=== PATIENT | female | born 1990 | race Caucasian/White ===

== ENCOUNTER → 2020-09-20 12:38 | Outpatient (CLI) | payer BC, MEDICAID, SELFPAY ==
--- NOTE | ~2020-09-20 | US_ITS ---
US OB transvaginal DATE: 09/20/2020 13:26 INDICATION: Gestational age determination TECHNIQUE: Real time imaging and doppler analysis COMPARISON: None FINDINGS: The uterus measures 9.5 cm height, 4.9 cm AP and 5.7 cm transverse dimension. Normally shaped intrauterine gestational sac with pole and yolk sac. Normal hyperechogenicity around the sac consistent with decidual reaction. [place] rump length: 1.02 cm. Estimated gestational age of 7 weeks 1 day plus or minus 5 days. YANNA: 05/08/2021 Right ovary measures 2.5 x 1.2 x 2.5 cm. Left ovary measures 4.2 x 2.8 x 2.6 cm. There is a complex lesion of the left ovary measuring 2.4 x 1.5 x 2.0 cm, likely corpus luteum. No free pelvic fluid. IMPRESSION: Estimated gestational age 7 weeks 1 day plus or minus 5 days; YANNA 05/08/2021 Reviewed, dictated and finalized at [facility]. Reviewed, dictated and finalized at [facility]. T CUSTODIAN IMPRESSION: Estimated gestational age 7 weeks 1 day plus or minus 5 days; YANNA 1
== END ==
PROVIDERS: Visit Provider Obstetrics & Gynecology
DX: Z36.87 Encounter for antenatal screening for uncertain dates (principal); Z3A.01 Less than 8 weeks gestation of pregnancy
CPT/HCPCS: 76817

== ENCOUNTER 2021-03-03 11:41 | Outpatient (CLI) | payer BC, MEDICAID, SELFPAY ==
[2021-03-03] VITALS (7 sets, daily range): BP systolic 128–135; BP diastolic 63–83; PULSE 87–100
[2021-03-03 12:21] LABS: Basophils Percent Auto 0.3 % (0.2-1.2); Eosinophils Absolute Auto 0.1 K/mm3 (0-0.3); Eosinophils Percent Auto 0.5 % (0-4.4); Hematocrit 39.5 % (37.0-47.0); Hemoglobin 12.8 g/dL (12.0-15.0); Immature Granulocyte Absolute 0.07 K/mm3 (0.00-0.031); Immature Granulocyte Percent A 0.6 % (0-0.5); Lymphocytes Absolute Auto 2.42 K/mm3 (0.9-3.2); Lymphocytes Percent Auto 21.2 % (18.3-44.2); Mean Corpuscular HGB Conc 32.4 g/dl (32-36); Mean Corpuscular Hemoglobin 28.6 pg (26-34); Mean Corpuscular Volume 88.4 fl (80-100); Mean Platelet Volume 10.1 fl (7.4-10.4); Monocytes Absolute Auto 0.6 K/mm3 (0.1-0.6); Monocytes Percent Auto 5.3 % (2.6-8.5); Neutrophils Absolute Auto 8.2 K/mm3 (1.3-6.7); Neutrophils Percent Auto 72.1 % (45.5-73.1); Platelet Count Result 298 k/mm3 (150-375); Red Blood Count 4.47 M/mm3 (4.2-5.4); Red Cell Distribution Width 14.2 % (11.5-14.5); White Blood Count 11.4 K/mm3 (4.5-10.0)
[2021-03-03 12:31] LABS: Alanine Aminotransferase 12 U/L (4-35); Albumin Level 3.9 g/dL (3.5-5.1); Alkaline Phosphatase 109 U/L (38-126); Anion Gap 9 mmol/L (8-16); Aspartate Amino Transferase 15 U/L (14-36); Bilirubin,Total 0.5 mg/dL (0.2-1.3); Blood Urea Nitrogen 6 mg/dL (7-17); Calcium 8.6 mg/dL (8.4-10.2); Carbon Dioxide 21 mmol/L (22-30); Chloride 106 mmol/L (98-107); Estimated Glomerular Filt Rate > 60; Glucose 73 mg/dL (65-110); Potassium 3.9 mmol/L (3.4-5.0); Sodium 136 mmol/L (137-145); Uric Acid 4.7 mg/dL (2.5-7.5)
[2021-03-03 13:06] LABS: Add Urine Microscopic? YES; Appearance Urine Cloudy (Clear); Bacteria Urine Trace /hpf; Bilirubin Urine Negative (Negative); Blood Urine Negative (Negative); Color Urine Yellow (Yellow); Glucose Urine UA Negative (Negative); Ketones Urine 1+ mg/dL (Negative); Leukocyte Esterase Ur Negative LEU/UL (NEGATIVE); Mucus Urine Rare /lpf; Nitrate Urine Negative (Negative); Protein Urine Negative (Negative); Specific Grav Ur 1.025 (1.001-1.035); Squamous Epithelial Cell Urine Many /hpf (Few); WBC Urine 0-3 /hpf (0-3)
--- NOTE | 2021-03-03 13:29 | PC.NURSE ---
[id number]--Report to Dr. Maier re: BP's and lab results. Orders to DC home.
[2021-03-03 21:07] LABS: Creatinine Urine 160.3 mg/dL; Total Protein Urine Random 7 mg/dL; Ur Ttl Prot Creatinine Ratio 0.04 mg/mg (0-0.20)
== END 2021-03-03 13:50 | disposition home or self-care (01) ==
LOC: ANHOBOP 11:45 → ANHOBPP 11:47
PROVIDERS: PCP Internal Medicine; Visit Provider Obstetrics & Gynecology
DX: O13.3 Gestational [pregnancy-induced] hypertension without significant proteinuria, third trimester (principal); Z3A.30 30 weeks gestation of pregnancy
CPT/HCPCS: 36415; 59025; 80053; 81001; 82570; 84156; 84550; 85025; 87086; 99199

== ENCOUNTER 2021-04-30 09:07 | Outpatient (CLI) | payer BC, MEDICAID, SELFPAY ==
[2021-04-30 09:29] LABS: Hematocrit 38.7 % (37.0-47.0); Mean Corpuscular HGB Conc 33.6 g/dl (32-36); Mean Corpuscular Hemoglobin 29.6 pg (26-34); Mean Corpuscular Volume 88.2 fl (80-100); Mean Platelet Volume 10.4 fl (7.4-10.4); Platelet Count Result 269 k/mm3 (150-375); Red Blood Count 4.39 M/mm3 (4.2-5.4); Red Cell Distribution Width 14.9 % (11.5-14.5); White Blood Count 9.7 K/mm3 (4.5-10.0)
[2021-05-01 13:13] LABS: Rapid Plasma Reagin Non-Reactive (NonReactive)
== END 2021-04-30 09:08 | disposition home or self-care (01) ==
PROVIDERS: PCP Internal Medicine; Visit Provider Obstetrics & Gynecology Gynecology
DX: Z34.93 Encounter for supervision of normal pregnancy, unspecified, third trimester (principal); Z3A.00 Weeks of gestation of pregnancy not specified
CPT/HCPCS: 36415; 85027; 86592; 86850; 86900; 86901

== ENCOUNTER 2021-05-02 10:04 | Inpatient (IN) | payer BC, MEDICAID, SELFPAY ==
[2021-05-02] VITALS (57 sets, daily range): BP systolic 105–150; BP diastolic 52–122; PULSE 56–93; RESP 14–18; TEMP 36.2–37.1; O2SAT 97–100
--- NOTE | 2021-05-02 07:58 | P.HP_ITS ---
H&P: HPI History of Present Illness Date/Time: 05/02/21 07:58 Chief Complaint: Scheduled Narrative: The patient is a 31-year-old 3 para 2 being admitted at 39 weeks for repeat section. The has been complicated by early diagnosis of gestational diabetes insulin requiring. She has been followed with twice weekly nonstress tests which have been reactive and serial ultrasounds w [facility] reveal at last check a 92nd percentile estimated weight. labs A positive, rubella immune, RPR negative, hepatitis-B surface antigen negative, HIV negative, and negative group B strep. Review of Systems Review of Systems: All systems reviewed & are unremarkable except as noted in HPI and below (History of present illness) PMFSH Past Medical History Medical History (Updated 05/02/21 @ 08:03 by Sole Lo MD) Anxiety Depression Surgical History Surgical History (Updated 05/02/21 @ 08:03 by Sole Lo MD) H/O excision of ganglion cyst History of X2 Status post appendectomy Status post bone graft Status post tonsillectomy and adenoidectomy Family History Family History Other No pertinent family history Social History Social History (System 04/23/20 @ 12:23 by Aydee Ledesma) Substance use: never Spiritual care concerns: No Meds Home Medications and Allergies Home Medications Medication Instructions Recorded Confirmed Type PNV cmb#95-ferrous fumarate-FA 1 tablet PO DAILY 04/21/21 04/21/21 History [] aspirin 81 mg PO DAILY 04/21/21 04/21/21 History ergocalciferol (vitamin D2) 1,250 mcg PO WEEKLY 04/21/21 04/21/21 History [Vitamin D2] insulin NPH isoph U-100 human 58 unit SUBCUT HS 04/21/21 04/21/21 History [Humulin N NPH U-100 Insulin] Allergies Allergy/AdvReac Type Severity Reaction Status Date / Time amoxicillin AdvReac Severe nausea/hear Verified 04/23/20 12:23 tburn WATER AdvReac Intermediate HIVES,ITCHING,BURNING Uncoded 04/23/20 12:23 SENSATION Exam Const: General: healthy appearing and comfortable GI: Inspection: other (Gravid) GI Palp: Yes Other GI palpation findings present (Fundal height 41cm with heart tones in the 130) Assessment and Plan Assessment and plan (1) 39 weeks gestation of : Code(s): Z3A.39 - 39 weeks gestation of Status: Acute Assessment and Plan: The plan is to proceed with repeat section. (2) GDM, class A2: Code(s): O24.419 - Gestational diabetes mellitus in , unspecified control Status: Acute (3) History of : Code(s): Z98.891 - History of uterine scar from previous surgery Status: Inactive
--- NOTE | 2021-05-02 07:58 | WPDHPUPDATE1 ---
History and Physical Update Update Date/Time: 05/02/21 07:58 History and Physical has been reviewed, including an updated exam of the patient. There are NO changes in the patient's condition. Risks, benefits, and alternatives have been discussed and questions answered. Patient agrees to proceed with procedure.
[2021-05-02] MEDS: LACTATED RINGERS 1,000 ML 125 ML IV CONT (10:54)
--- NOTE | 2021-05-02 11:39 | LDADM ---
This patient, Erin Montgomery, was admitted to Labor/Delivery/Recovery 119 on 05/02/21 at 10:04. Plans for repeat c section , pain management and were discussed with patient. Patient/family oriented to hospital policies and general routines including ID bracelet, bed and alarms, visiting hours, pain management, procedures, bathroom and other care routines, personal items, smoking policy, room service/diet and guest tray routines, infant security routines, and visiting hours. Patient/Family are encouraged to report perceived risks to care and to ask questions if they do not understand what they are told or what they should do. See OBIX for further documentation.
[2021-05-02] MEDS: ceFAZolin 3 GM/D5W 100 ML 100 ML IVPB (12:02)
[2021-05-02] MEDS: KETOROLAC 30 MG/ML VIAL (*BKC) IV PUSH ×2 (12:25→17:06)
--- NOTE | 2021-05-02 12:44 | W.PM.PROC2 ---
Procedure Note - Detailed Date of Procedure 05/02/21 Pre-op Diagnosis Previous c section x2 Intrauterine at 39 weeks Gestational diabetes insulin requiring Post-op Diagnosis same Procedure Performed Repeat low transverse section Surgeon Sole Lo MD Anesthesia spinal Findings Male infant 8lb with 8 and 9 Apgars; normal-appearing tubes ovaries and uterus Description of Procedure The patient was taken to the operating room and placed under anesthesia in the dorsal supine position with a leftward tilt. Once anesthesia was deemed adequate a Pfannenstiel skin incision was made through her prior incision with a scalpel. The incision was extended down to the fascia which was nicked in the midline. Fascial incision was extended laterally using Plaza scissors. The fascia was dissected off anteriorly and posteriorly while tenting with [facility] and using sharp dissection. The peritoneum was entered during this process and the incision was now extended with blunt traction. The Aydin O retractor was placed. The bladder flap was noted to be very deep below the transverse incision site and was left in place. The lower uterine segment was incised in a transverse fashion with the scalpel and extended laterally using blunt traction. Membranes are ruptured with clear fluid noted. The 's head was brought up into the incision and while the facilities maintenance assistant applied fundal pressure the infant was delivered. The cord was clamped and cut and the handed to the waiting nursery nurse. Cord blood for gases and lap were taken. The placenta was removed using manual traction. The uterine cavity is cleared with a dry sponge of all clots and debris. The uterine incision was then closed using 0 Monocryl in a running locked fashion with the same suture to imbricate. Good hemostasis was noted. The gutters were irrigated and tubes and ovaries inspected. The Aydin O retractor is removed and the incision is again inspected noted to be hemostatic. The fascia was closed using 0 Vicryl in a running fashion. Subcutaneous tissues were irrigated and made hemostatic using Bovie cautery. The skin incision is closed using 4-0 Vicryl in a subcuticular fashion. Dermaflex was placed over the incision. Sponge, needle, and instrument counts are correct per the OR staff. Patient was given 3g of Ancef prior to skin incision. The patient was taken to recovery in stable condition. Estimated Blood Loss 255 Drains Yes ([place]) Packing No Pathology yes (Placenta) Complications No immediate complications Condition stable Disposition PACU
--- NOTE | 2021-05-02 12:49 | PM.OBDSVD ---
DS: Admitting Diagnosis Discharge Date May 04, 2021 Admitting Diagnosis Intrauterine at 39 weeks with previous section x2 gestational diabetes insulin requiring Presents for repeat DS: Discharge Diagnosis Discharge Diagnosis (1) GDM, class A2: Code(s): O24.419 - Gestational diabetes mellitus in , unspecified control Status: Acute (2) delivery delivered: Code(s): O82 - Encounter for delivery without indication Status: Acute OB - DS: Summary OB Procedures : NST and Ultrasound OB Procedures Intrapartum: low cervical, transverse OB Procedures: : None Peripartum Data Infant Delivery Method: Section Procedures: Procedures Operation Date: 05/02/21 13:30 <No data on this case meets the specified criteria> Status at Discharge Functional status at discharge: independent ambulation Overall status at discharge: patient is progressing back to baseline Time Spent with Patient Time attestation: Total time spent providing and/or coordinating discharge services: Discharge Plan Discharge Attending physician on discharge: Sole Lo Discharging Clinician: Sole Lo Anticipated Discharge Date/Time: 05/04/21 12:51 Patient Disposition: Home, Self-Care Activity: may shower, may drive after 2 weeks and pelvic rest Diet: gestational diabetic Wound Care Instructions: incision open to air Patient Instructions: Antibiotic Form Stand Alone Forms: General Discharge Information Follow-up/Referrals: Zoran Maier MD [Physician] - 1 Week Discharge Medications: New hydrocodone-acetaminophen 5-325 mg tablet 1 tablet PO Q4H PRN (Reason: pain) Qty: 20 RF: 0 norethindrone (contraceptive) 0.35 mg tablet 0.35 mg PO DAILY Qty: 84 RF: 3 Continued ergocalciferol (vitamin D2) [Vitamin D2] 1,250 mcg (50,000 unit) Capsule 1,250 mcg PO WEEKLY RF: 0 PNV cmb#95-ferrous fumarate-FA [] 28 mg iron- 800 mcg Tablet 1 tablet PO DAILY RF: 0 Discontinued Humulin N NPH U-100 Insulin 100 unit/mL Suspension 58 unit SUBCUT HS RF: 0 aspirin 81 mg Tablet 81 mg PO DAILY RF: 0 Date of admission: 05/02/21 10:04 Primary Care Provider: Pierre Osman Admitting Provider: Zoran Maier Attending physician on admission: Zoran Maier Condition: Stable
[2021-05-02] MEDS: fentaNYL CITRATE INJ (*CRX) 100 MCG/2 ML VIAL (14:53)
--- NOTE | 2021-05-02 15:33 | PC.NURSE ---
Patient transferred to post room #283 per stretcher. Support person present. Oriented to unit, room, information board, rooming in, admission packet and security measures. Patient verbalizes understanding.
[2021-05-02] MEDS: OXYTOCIN 30 UNITS/NS 500 ML 30 UNITS/500 ML BAG 125 UNITS IV CONT (15:45)
[2021-05-02] MEDS: KCL 20 MEQ/D5/0.45% SOD CHL 1,000 ML 125 ML IV CONT (17:05)
[2021-05-02] MEDS: SIMETHICONE 80 MG TAB.CHEW PO (17:06)
[2021-05-02] MEDS: DOCUSATE SODIUM 100 MG CAPSULE PO (17:07)
[2021-05-02] MEDS: HYDROcodone/acetaminophen (*CRX) 10-325 MG TABLET 1 TAB PO ×2 (17:07→21:25)
[2021-05-03] MEDS: IBUPROFEN 600 MG TABLET PO ×4 (02:35→23:40)
[2021-05-03] MEDS: HYDROcodone/acetaminophen (*CRX) 10-325 MG TABLET 1 TAB PO ×5 (02:35→23:40)
[2021-05-03 04:50] VITALS: BP 124/82; PULSE 76; RESP 16; TEMP 37; O2SAT 97
[2021-05-03] MEDS: HYDROcodone/acetaminophen (*CRX) 5-325 MG TABLET 1 TAB PO (05:18)
[2021-05-03 05:46] LABS: Basophils Absolute Auto 0.1 K/mm3 (0.0-0.1); Basophils Percent Auto 0.5 % (0.2-1.2); Eosinophils Absolute Auto 0.1 K/mm3 (0-0.3); Eosinophils Percent Auto 0.5 % (0-4.4); Hematocrit 35.6 % (37.0-47.0); Hemoglobin 11.7 g/dL (12.0-15.0); Immature Granulocyte Absolute 0.06 K/mm3 (0.00-0.031); Immature Granulocyte Percent A 0.6 % (0-0.5); Lymphocytes Percent Auto 22.2 % (18.3-44.2); Mean Corpuscular HGB Conc 32.9 g/dl (32-36); Mean Corpuscular Hemoglobin 29.9 pg (26-34); Mean Platelet Volume 10.6 fl (7.4-10.4); Monocytes Absolute Auto 0.6 K/mm3 (0.1-0.6); Monocytes Percent Auto 6.6 % (2.6-8.5); Neutrophils Absolute Auto 6.6 K/mm3 (1.3-6.7); Neutrophils Percent Auto 69.6 % (45.5-73.1); Platelet Count Result 250 k/mm3 (150-375); Red Blood Count 3.91 M/mm3 (4.2-5.4); White Blood Count 9.4 K/mm3 (4.5-10.0)
--- NOTE | 2021-05-03 07:39 | PM.OBPNVD ---
OB - PN: Subj Subjective Date/time seen: 05/03/21 07:39 Patient comments: no complaints and pain well controlled baby status: doing well OB - PN: Obj Data Labs CBC & Chem 7: 05/03/21 04:58 Labs: Laboratory Results - last 24 hr 05/03/21 04:58 WBC 9.4 RBC 3.91 L Hgb 11.7 L Hct 35.6 L MCV 91.0 MCH 29.9 MCHC 32.9 RDW 15.0 H Plt Count 250 MPV 10.6 H Immature Gran % (Auto) 0.6 H Neut % (Auto) 69.6 Lymph % (Auto) 22.2 [place] % (Auto) 6.6 Eos % (Auto) 0.5 Baso % (Auto) 0.5 Lymph # (Auto) 2.10 [place] # (Auto) 0.6 Eos # (Auto) 0.1 Baso # (Auto) 0.1 Abs Immat Gran (auto) 0.06 H Absolute Neuts (auto) 6.6 Absolute Nucleated RBC 0.0 Nucleated RBC % 0.0 OB - PN A/P Plan day: 1 Plan: routine care Time Spent With Patient Time: Total time spent is greater than 50% in coordination of care (as documented) at patient's floor/unit and/or counseling patient: Exam Narrative: inc c/d/i : Bimanual exam- vagina & uterus: other (Uterus firm, nt @U)
[2021-05-03 08:00] VITALS: BP 135/78; PULSE 76; RESP 20; TEMP 35.9
--- NOTE | 2021-05-03 08:16 | WPDANESPN ---
Anes - Prog Note Post-Op Date/Time: 05/03/21 08:16 Vital Signs: Last Vital Signs Temp 98.6 F 05/03/21 04:50 Pulse 76 05/03/21 04:50 Resp 16 05/03/21 04:50 BP 124/82 05/03/21 04:50 Pulse Ox 97 05/03/21 04:50 Pain Score (VAS): 0 I/O: Intake & Output 05/02/21 05/03/21 05/03/21 23:59 07:59 15:59 Intake Total 1300 800 Output Total 600 575 Balance 700 225 Laboratory Tests 05/03/21 04:58 05/03/21 04:58 WBC 9.4 RBC 3.91 L Hgb 11.7 L Hct 35.6 L MCV 91.0 MCH 29.9 MCHC 32.9 RDW 15.0 H Plt Count 250 MPV 10.6 H Immature Gran % (Auto) 0.6 H Neut % (Auto) 69.6 Lymph % (Auto) 22.2 [place] % (Auto) 6.6 Eos % (Auto) 0.5 Baso % (Auto) 0.5 Lymph # (Auto) 2.10 [place] # (Auto) 0.6 Eos # (Auto) 0.1 Baso # (Auto) 0.1 Abs Immat Gran (auto) 0.06 H Absolute Neuts (auto) 6.6 Absolute Nucleated RBC 0.0 Nucleated RBC % 0.0 Post-procedural complaints: none Patient Feedback: Patient satisfied with anesthetic care.
--- NOTE | 2021-05-03 08:17 | WPDANLDPN2 ---
Anes-Prog Note L&D Date/Time: 05/03/21 08:17 Comfortable throughout: section Neuraxial method: spinal Epidural/Spinal procedure site: bruising Neuro status: Neuro function grossly intact. Vital Signs: Last Vital Signs Temp 98.6 F 05/03/21 04:50 Pulse 76 05/03/21 04:50 Resp 16 05/03/21 04:50 BP 124/82 05/03/21 04:50 Pulse Ox 97 05/03/21 04:50 Pain score (VAS): 0 I/O: Intake & Output 05/02/21 05/03/21 05/03/21 23:59 07:59 15:59 Intake Total 1300 800 Output Total 600 575 Balance 700 225 Post-procedural complaints: none Patient feedback: Patient satisfied with anesthetic care.
[2021-05-03] MEDS: DOCUSATE SODIUM 100 MG CAPSULE PO ×2 (08:27→19:12)
[2021-05-03] MEDS: MULTIVIT/MIN/PREN/FOL AC/IRON TABLET 1 TAB PO (08:27)
--- NOTE | 2021-05-03 08:40 | PC.NURSE ---
Consult with pt., mother reports is eagerly feeding with without issue. Mother is pleased infant is eagerly feeding, she had some latch issue with first two. This is mother?s 3rd child to breastfeed. Requested mother call out next feeding for observation per policy. Reviewed feeding cues, frequencies, duration of feedings, feeding elimination flow sheet, and signs of adequate intake. Demonstrated stimulation techniques to wake infant for feeding. Reviewed signs of a correct latch, effective nursing and suck swallow ratio. Nipple care reviewed of lanolin after feedings and warm compresses as needed. Requested mother to call out for RN/LC assistance next feeding to assess latch due reported nipple tenderness. Instructed feeding should be initiated three hours from start of last feeding or if feeding cues are noted before. Mother voiced understanding of information shared.
[2021-05-03] MEDS: SIMETHICONE 80 MG TAB.CHEW PO ×3 (15:32→23:40)
[2021-05-03 19:10] VITALS: BP 136/83; PULSE 83; RESP 16; TEMP 36.5
[2021-05-04] MEDS: SIMETHICONE 80 MG TAB.CHEW PO ×2 (02:40→05:45)
[2021-05-04] MEDS: HYDROcodone/acetaminophen (*CRX) 10-325 MG TABLET 1 TAB PO ×4 (02:40→12:53)
[2021-05-04] MEDS: IBUPROFEN 600 MG TABLET PO (05:45)
--- NOTE | 2021-05-04 07:32 | PM.OBPNVD ---
OB - PN: Subj Subjective Date/time seen: 05/04/21 07:32 Patient comments: no complaints and pain well controlled baby status: doing well OB - PN: Obj Data Labs CBC & Chem 7: 05/03/21 04:58 OB - PN A/P Plan day: 2 Plan: routine care, discharge home and other (Micronor for bc) Time Spent With Patient Time: Total time spent is greater than 50% in coordination of care (as documented) at patient's floor/unit and/or counseling patient: Exam Narrative: inc c/d/i : Bimanual exam- vagina & uterus: other (Uterus firm, nt @U)
[2021-05-04 09:40] VITALS: BP 148/97; PULSE 82; RESP 20; TEMP 36.9
--- NOTE | 2021-05-04 09:40 | PC.NURSE ---
Patient instructed on viewing the discharge video Mother & Baby Care, The First Two Weeks . Patient was given the opportunity and encouraged to ask questions. Patient verbalized understanding of information shared and has been given the mother/baby guide for home reference.
[2021-05-04] MEDS: DOCUSATE SODIUM 100 MG CAPSULE PO (09:46)
[2021-05-04] MEDS: MULTIVIT/MIN/PREN/FOL AC/IRON TABLET 1 TAB PO (09:46)
[2021-05-04 12:25] VITALS: BP 140/87
--- NOTE | 2021-05-04 15:18 | PC.NURSE ---
0900 Breast feeding note; visited with mother; she reports no breast feeding problems and feels baby is doing well. Mom and baby scheduled for discharge home today. Reviewed frequency and duration of feedings, nursing baby q2-3h and on demand. Reviewed use of feeding log for monitoring feedings and output per day of age for at least baby's first week until machine strap buckler seen in the office. Mother shown Mother Guide, and breast feeding pages flagged, including LC contact information. Reviewed care of breasts through engorgement. Mother had no questions for nurse or breast feeding concerns at this time.
[2021-05-05 09:24] VITALS: BP 148/85; PULSE 77; RESP 20; TEMP 37.2; O2SAT 100
== END 2021-05-04 13:28 | disposition home or self-care (01) | DRG 788 ==
LOC: ANHLDR 12:51 → ANHOB2 05-03 13:48 → ANHLDR 05-05 10:22 → ANHOB2 05-05 10:22
PROVIDERS: Admitting Provider Obstetrics & Gynecology Gynecology; PCP Internal Medicine; Visit Provider Obstetrics & Gynecology Gynecology
PROC: 10D00Z1 Extraction of Products of Conception, Low, Open Approach (ICD-10-PCS; CPT 59514; principal; 2021-05-02 13:30)
DX: O34.211 Maternal care for low transverse scar from previous cesarean delivery (principal); Z37.0 Single live birth; Z3A.39 39 weeks gestation of pregnancy; O24.424 Gestational diabetes mellitus in childbirth, insulin controlled
CPT/HCPCS: 36415; 85025; 88307; A9270; J0131; J0690; J1885; J2274; J2370; J2405; J2590; J3010; J3480; J7120

== ENCOUNTER 2021-07-30 04:12 | Emergency (ER) | payer OTHER, SELFPAY ==
--- NOTE | ~2021-07-30 | CT_ITS ---
EXAMINATION: CT abdomen pelvis wo con DATE: 07/30/2021 05:34 INDICATION: Right flank pain. Nausea and vomiting. TECHNIQUE: Computed tomography (CT) of the abdomen and pelvis was performed without intravenous contr ast. Automated exposure control and iterative reconstruction technique were employed. Exam dose: 149 2.69 mGy-cm total exam DLP. COMPARISON: None. FINDINGS: Lung bases are clear. Normal heart size. No pericardial or pleural effusion. Diffuse hepatic steatosis. No hepatic, splenic, pancreatic, and adrenal or renal space-occupying mass lesion is detected. Approximately 5 mm and 2 mm lower pole nonobstructing right renal calculi. There is a 5 mm proximal r ight ureteral calculus with moderate right hydronephrosis. There is mild perinephric stranding and ri ght nephromegaly. Normal caliber of the abdominal aorta. No intraperitoneal or retroperitoneal or pelvic mass lesion or adenopathy or ascites. Normal appendix. No bowel obstruction, bowel wall thickening, pneumatosis or intraperitoneal free air . Retroverted uterus. The adnexal areas and urinary bladder are unremarkable. No bowel obstruction, bowel wall thickening, pneumatosis or intraperitoneal free air. Small fat-containing umbilical hernia. Included skeletal structures are unremarkable IMPRESSION: 5 mm proximal right ureteral calculus with moderate right hydronephrosis, right nephrome gus and mild perinephric stranding 2 nonobstructing small lower pole right renal calculi Retroverted uterus Hepatic steatosis Reviewed, dictated and finalized at [facility]. Reviewed, dictated and finalized at location [facility]. 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
--- NOTE | ~2021-07-30 | XR_ITS ---
XR abdomen/kub 1V DATE: 07/30/2021 09:52 INDICATION: Kidney stone TECHNIQUE: AP projection, 2 views COMPARISON: 07/30/[address] abdomen pelvis FINDINGS: An approximately 4 mm calcified calculus is noted overlying the lower pole the right kidney. Questionable 4 mm calcification overlying the proximal right ureter at the L3 level on one of the 2 e xposures, not readily evident on the other exposure. No other calcified urinary tract calculi are noted. No visceromegaly is detected. No evidence of bowel obstruction. IMPRESSION: Lower pole right approximate 4 mm calcified calculus Possible 4 mm calcified proximal right ureteral calculus at L3 level, not confirmed on both views Reviewed, dictated and finalized at [facility]. Reviewed, dictated and finalized at [facility]. 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
[2021-07-30 04:17] VITALS: BP 152/92; PULSE 86; RESP 17; TEMP 36.9; O2SAT 98
[2021-07-30] MEDS: KETOROLAC 30 MG/ML VIAL (*BKC) IV PUSH (04:37)
[2021-07-30 05:03] LABS: Add Urine Microscopic? YES; Appearance Urine Cloudy (Clear); Bilirubin Urine Negative (Negative); Blood Urine 3+ (Negative); Color Urine Yellow (Yellow); Glucose Urine UA Negative (Negative); Ketones Urine Negative (Negative); Leukocyte Esterase Ur 3+ LEU/UL (Negative); Mucus Urine Moderate /lpf; Nitrate Urine Negative (Negative); Protein Urine 1+ mg/dL (Negative); RBC Urine >75 /hpf (0-2); Urobilinogen Urine Negative mg/dL (<2.0)
--- NOTE | 2021-07-30 05:21 | PC.NURSE ---
Patient taken to CT at this time. Taken via stretcher.
--- NOTE | 2021-07-30 05:51 | ED.BACK ---
HPI - Back Pain/Injury General Chief Complaint: Back Pain/Injury <Amol Paul MD - Last Filed: 07/30/21 06:55> Stated Complaint: Right flank pain <Amol Paul MD - Last Filed: 07/30/21 06:55> Time Seen by Provider: 07/30/21 04:18 <Amol Paul MD - Last Filed: 07/30/21 06:55> History of Present Illness HPI Narrative: Patient is a 31-year-old female who presents ER with sudden onset right flank pain. Associated with nausea and vomiting. No urinary frequency urgency or dysuria. No reproducible pain with movement but she does have some point tenderness with palpation. No numbness or tingling going down the legs. Reports she has had backaches before but not intense pain that is made her vomit and she is concerned she may have something more serious occurring. <Amol Paul MD - Last Filed: 07/30/21 06:55> Related Data Home Medications: Home Medications Medication Instructions Recorded Confirmed PNV cmb#95-ferrous fumarate-FA 1 tablet PO DAILY 04/21/21 05/02/21 [] ergocalciferol (vitamin D2) 1,250 mcg PO WEEKLY 04/21/21 05/02/21 [Vitamin D2] <Amol Paul MD - Last Filed: 07/30/21 06:55> Allergies/Adverse Reactions: Allergies Allergy/AdvReac Type Severity Reaction Status Date / Time amoxicillin AdvReac Severe nausea/hear Verified 07/30/21 04:20 tburn WATER AdvReac Intermediate HIVES,ITCHING,BURNING Uncoded 04/23/20 12:23 SENSATION <Amol Paul MD - Last Filed: 07/30/21 06:55> Review of Systems Review of Systems: All systems reviewed & are unremarkable except as noted in HPI and below <Amol Paul MD - Last Filed: 07/30/21 06:55> Constitutional: Constitutional: Denies chills, Denies fever(s) and Denies weakness <Amol Paul MD - Last Filed: 07/30/21 06:55> Cardiovascular: Cardiovascular: Denies chest pain, Denies rapid heart rate and Denies radiating jaw, neck or arm pain <Amol Paul MD - Last Filed: 07/30/21 06:55> Respiratory: Respiratory: Denies cough and Denies dyspnea <Amol Paul MD - Last Filed: 07/30/21 06:55> Gastrointestinal: Gastrointestinal: Denies abdominal pain, Reports nausea and Reports vomiting <Amol Paul MD - Last Filed: 07/30/21 06:55> Musculoskeletal: Musculoskeletal: Reports back pain and Reports muscle cramps <Amol Paul MD - Last Filed: 07/30/21 06:55> PMFSH Past Medical History Medical History: Medical History (Updated 07/30/21 @ 10:29 by Lauro Pryor MD) Anxiety Depression <Amol Paul MD - Last Filed: 07/30/21 06:55> Surgical History Surgical History: Surgical History (Updated 05/02/21 @ 08:03 by Sole Lo MD) H/O excision of ganglion cyst History of X2 Status post appendectomy Status post bone graft Status post tonsillectomy and adenoidectomy <Amol Paul MD - Last Filed: 07/30/21 06:55> Family History Family History: Family History Other No pertinent family history <Amol Paul MD - Last Filed: 07/30/21 06:55> Social History Social History: Social History (System 04/23/20 @ 12:23 by Aydee Ledesma) Smoking packs per day: 0.5 Smoking cigarettes per day: 10.0 Smoking status: Former smoker Tobacco type: cigarettes Second hand tobacco smoke exposure: Yes Substance use: never Spiritual care concerns: No <Amol Paul MD - Last Filed: 07/30/21 06:55> Exam Narrative: GENERAL: Well-appearing, well-nourished, and in no acute distress. HEAD: Normocephalic, atraumatic. ENT: Mucous membranes moist. CHEST: Clear to auscultation. No respiratory distress. HEART: Regular rate and rhythm. Normal peripheral pulses. ABDOMEN: Soft, nontender, nondistended. No CVA tenderness Back: No midline tenderness of the T/L-spine. There is paraspinal muscular discomfort in the L3 region
[2021-07-30 06:13] VITALS: BP 155/87; PULSE 73; RESP 17; O2SAT 97
[2021-07-30 06:34] LABS: Basophils Absolute Auto 0.1 K/mm3 (0.0-0.1); Basophils Percent Auto 0.5 % (0.2-1.2); Eosinophils Percent Auto 0.1 % (0-4.4); Hematocrit 40.6 % (37.0-47.0); Hemoglobin 13.2 g/dL (12.0-15.0); Immature Granulocyte Absolute 0.07 K/mm3 (0.00-0.031); Immature Granulocyte Percent A 0.5 % (0-0.5); Lymphocytes Absolute Auto 2.15 K/mm3 (0.9-3.2); Lymphocytes Percent Auto 15.9 % (18.3-44.2); Mean Corpuscular HGB Conc 32.5 g/dl (32-36); Mean Corpuscular Hemoglobin 29.2 pg (26-34); Mean Corpuscular Volume 89.8 fl (80-100); Mean Platelet Volume 10.4 fl (7.4-10.4); Monocytes Absolute Auto 0.5 K/mm3 (0.1-0.6); Monocytes Percent Auto 3.6 % (2.6-8.5); Neutrophils Absolute Auto 10.7 K/mm3 (1.3-6.7); Neutrophils Percent Auto 79.4 % (45.5-73.1); Platelet Count Result 354 k/mm3 (150-375); Red Blood Count 4.52 M/mm3 (4.2-5.4); Red Cell Distribution Width 14.6 % (11.5-14.5); White Blood Count 13.5 K/mm3 (4.5-10.0)
[2021-07-30 06:49] LABS: Anion Gap 9 mmol/L (8-16); Blood Urea Nitrogen 22 mg/dL (7-17); Calcium 9.5 mg/dL (8.4-10.2); Carbon Dioxide 26 mmol/L (22-30); Chloride 103 mmol/L (98-107); Estimated Glomerular Filt Rate > 60; Glucose 152 mg/dL (65-110); Potassium 3.8 mmol/L (3.4-5.0); Sodium 138 mmol/L (137-145)
--- NOTE | 2021-07-30 06:56 | PC.NURSE ---
Called main lab to have them run catheterized urine.
[2021-07-30 07:17] LABS: Calcium Oxalate Crystals Urine Present /hpf
[2021-07-30 07:34] LABS: Specific Grav Ur 1.032 (1.001-1.035)
[2021-07-30 07:35] LABS: Squamous Epithelial Cell Urine Few /hpf (Few)
--- NOTE | 2021-07-30 07:58 | PC.NURSE ---
Lab called regarding repeat UA being cancelled. They will check into it and call back.
--- NOTE | 2021-07-30 09:13 | PC.NURSE ---
Awaiting dispo from ERP.
[2021-07-30] MEDS: MORPHINE SULFATE (*CRX) 4 MG/ML INJ IV PUSH (09:40)
[2021-07-30] MEDS: ONDANSETRON INJ 4 MG/2 ML VIAL IV PUSH (09:40)
--- NOTE | 2021-07-30 10:02 | P.PNUR_ITS ---
Subjective Subjective Date/Time Seen: 07/30/21 10:02 I spoke with the patient over the phone through the ER Construction Worker Jeanne. She denies fevers or voiding symptoms. Catheterized urine with LE and blood but nitrite negative, positive for oxalate crystals consistent with urolithiasis, no bacteria on microscopy. WBC 13.4, SCr. 0.70 She denies voiding symptoms. She is feeling better and would prefer to avoid surgical intervention if possible. We will defer stent placement at this time and observe. ER will PO challenge and discharge home with appropriate antibiotics and pain medication. She will strain all urine and understands that if she passes her stone she can likely forgo surgical intervention. She will return to the ER immediately if she develops fevers, chills, pain uncontrolled with oral pain medication or nausea/vomiting preventing proper oral hydration. She will follow up next week so we can plan surgery if needed. KUB to be performed in ER. SILVERIO Objective Data Vital Signs Vital Signs: Vital Signs - 24 hr 07/30/21 04:17 07/30/21 06:13 Temperature 98.5 F Pulse Rate 86 73 Respiratory Rate 17 17 Blood Pressure 152/92 H 155/87 H Pulse Oximetry 98 97 Intake/Output Intake/Output: Intake & Output 07/27/21 07/28/21 07/29/21 07/30/21 23:59 23:59 23:59 23:59 Intake Total 50 Output Total 100 Balance -50 Meds/Results Radiology Results: ITS Impressions Abdomen X-Ray 07/30/21 09:54 IMPRESSION: Lower pole right approximate 4 mm calcified calculus Possible 4 mm calcified proximal right ureteral calculus at L3 level, not confirmed on both views Labs Labs: Laboratory Results - last 24 hr 07/30/21 07/30/21 07/30/21 04:36 06:13 06:13 WBC 13.5 H RBC 4.52 Hgb 13.2 Hct 40.6 MCV 89.8 MCH 29.2 MCHC 32.5 RDW 14.6 H Plt Count 354 MPV 10.4 Immature Gran % (Auto) 0.5 Neut % (Auto) 79.4 H Lymph % (Auto) 15.9 L [place] % (Auto) 3.6 Eos % (Auto) 0.1 Baso % (Auto) 0.5 Lymph # (Auto) 2.15 [place] # (Auto) 0.5 Eos # (Auto) 0.0 Baso # (Auto) 0.1 Abs Immat Gran (auto) 0.07 H Absolute Neuts (auto) 10.7 H Absolute Nucleated RBC 0.0 Nucleated RBC % 0.0 Sodium 138 Potassium 3.8 Chloride 103 Carbon Dioxide 26 Anion Gap 9 BUN 22 H D Creatinine 0.70 Estim Creat Clear Calc Not Reportable Estimated GFR > 60 Glucose 152 H Calcium 9.5 Urine Color Yellow Urine Appearance Cloudy H Urine pH 5.0 Ur Specific [place] 1.032 Urine Protein 1+ H Urine Glucose (UA) Negative Urine Ketones Negative Ur Blood (Man) 3+ H Urine Nitrate Negative Urine Bilirubin Negative Urine Urobilinogen Negative Leukocyte Esterase Rfl 3+ H Urine RBC >75 H Urine WBC 4-6 H Ur Squamous Epith Cells Few Calcium Oxalate Crystal Present Urine Mucus Moderate H
== END 2021-07-30 11:00 | disposition home or self-care (01) ==
PROVIDERS: Emergency Medicine; Emergency Provider Emergency Medicine; PCP Internal Medicine
DX: N13.2 Hydronephrosis with renal and ureteral calculous obstruction (principal); N39.0 Urinary tract infection, site not specified; Z87.891 Personal history of nicotine dependence
CPT/HCPCS: 36415; 51701; 74018; 74176; 80048; 81001; 81025; 85025; 87086; 87088; 96374; 96375; 99284; J0696; J1885; J2270; J2405

== ENCOUNTER 2021-08-17 11:22 | Outpatient (CLI) | payer OTHER, SELFPAY ==
--- NOTE | ~2021-08-17 | XR_ITS ---
EXAMINATION: XR abdomen/kub 1V EXAM DATE: 08/17/2021 11:44 INDICATION: Kidney stone follow-up. TECHNIQUE: Frontal projection of the upper abdomen, frontal projection lower abdomen/pelvis for inter pretation. Comparison is made to prior examination from 07/30/2021 FINDINGS: Approximately 5 mm calcific density projecting over the lower pole of the right kidney, co uld be nephrolithiasis. No other suspicious calcific densities. Nonobstructive bowel gas pattern. The re are no osseous abnormalities identified. IMPRESSION: Probable small right nephrolithiasis. Reviewed, dictated and finalized at [facility]. 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
== END 2021-08-17 11:23 | disposition home or self-care (01) ==
LOC: ANHIMG 11:28
PROVIDERS: PCP Internal Medicine
DX: N20.0 Calculus of kidney (principal)
CPT/HCPCS: 74018

== ENCOUNTER 2021-09-06 11:02 | Outpatient (CLI) | payer OTHER, SELFPAY ==
--- NOTE | ~2021-09-06 | XR_ITS ---
EXAMINATION: XR abdomen/kub 1V EXAM DATE: 09/06/2021 11:19 INDICATION: Right nephrolithiasis. TECHNIQUE: Frontal projection(s) of the abdomen for interpretation. Comparison is made to prior exami nation from 08/17/2021. FINDINGS: Again there is approximately 5 mm calcification projecting over the lower pole of the righ t kidney, probably nephrolithiasis. This finding has been indicated, marked on the examination for re view, clinical correlation. Nonobstructive bowel gas pattern. There are no osseous abnormalities iden tified. IMPRESSION: Right nephrolithiasis. Reviewed, dictated and finalized at [facility]. R DONOR COORDINATOR IMPRESSION: Right nephrolithiasis.
== END 2021-09-06 11:03 | disposition home or self-care (01) ==
PROVIDERS: PCP Internal Medicine
DX: N20.0 Calculus of kidney (principal)
CPT/HCPCS: 74018

== ENCOUNTER 2021-10-06 09:06 | Outpatient (CLI) | payer OTHER, SELFPAY ==
--- NOTE | ~2021-10-06 | XR_ITS ---
XR abdomen/kub 1V 10/06/2021 09:24 INDICATION: Kidney stone TECHNIQUE: KUB COMPARISON: 09/06/2021 FINDINGS: Bowel pattern nonobstructive. Stable right nephrolithiasis. No definite left renal stones. No calcifications are identified in the expected course of the right or left ureters. No acute osseou s abnormality. IMPRESSION: 1: Stable right nephrolithiasis. Reviewed, dictated and finalized at [facility]. 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
== END 2021-10-06 09:07 | disposition home or self-care (01) ==
LOC: ANHIMG 09:12
PROVIDERS: PCP Internal Medicine
DX: N20.0 Calculus of kidney (principal)
CPT/HCPCS: 74018

== ENCOUNTER 2023-01-16 08:03 | Emergency (ER) | payer OTHER, MEDICAID, SELFPAY ==
[2023-01-16 08:12] VITALS: BP 159/96; PULSE 109; RESP 20; TEMP 37.2; O2SAT 96
--- NOTE | 2023-01-16 08:17 | ED.FEMALEGU ---
HPI - Female Genitourinary General Chief complaint: Upper Respiratory Infection Stated complaint: chills throat poss uti Time Seen by Provider: 01/16/23 08:10 Source: patient and RN notes reviewed History of Present Illness HPI Narrative: Patient is a 32-year-old female who presents to urgent care with complaints of intermittent chills, sore throat and dysuria. Patient states that the chills and sore throat started a couple days ago with a fever of 101. Patient states she has been taking Tylenol for the fever and chills which has since subsided. States that she does have a history of kidney stone however she has not had the severe back pain. Patient also reports of some decreased urinary output. Denies any blood in the urine. Denies any nausea or abdominal pain. Patient states her last menstrual cycle was the end of December. No other acute complaints. No acute distress noted. Patient aware of the plan of care. Some parts of this dictation were generated by voice recognition software and may contain typographical and/or grammatical inaccuracies. Related Data Allergies Allergy/AdvReac Type Severity Reaction Status Date / Time amoxicillin AdvReac Severe nausea/hear Verified 01/16/23 08:27 tburn WATER AdvReac Intermediate HIVES,ITCHING,BURNING Uncoded 01/16/23 08:27 SENSATION Review of Systems Review of Systems: GENERAL: This is a well-nourished, well-developed patient, in no apparent distress. HEAD: normocephalic, atraumatic. EYES: PERRL. Sclera clear/white. Vision is grossly intact. EARS: External ears normal, auditory canals clear and without drainage, TMs normal without perforation. Hearing grossly intact. NOSE: External nose normal with no obvious nasal discharge, nares without redness, no rhinorrhea. THROAT: Mucous membranes moist, posterior pharynx clear. Thick white thrush covering the surface of the tongue and around the lips NECK: Neck supple RESPIRATORY: Clear to auscultation. Breath sounds equal bilaterally. No wheezes, rales, or rhonchi. GASTROINTESTINAL: Abdomen soft, mild right suprapubic tenderness, nondistended. Bowel sounds are active. SKIN: warm, intact with no suspicious lesions or rash, good texture and turgor. NEURO: awake, alert, and oriented to person, place and time. There were no obvious focal neurologic abnormalities. EXTREMITIES: No clubbing, cyanosis, or edema. BACK: Negative bilateral CVA tenderness PMFSH Past Medical History Medical History (Updated 01/16/23 @ 08:36 by EMELY Freeman) Anxiety Depression Surgical History Surgical History (Updated 05/02/21 @ 08:03 by Sole Lo MD) H/O excision of ganglion cyst History of X2 Status post appendectomy Status post bone graft Status post tonsillectomy and adenoidectomy Family History Family History Other No pertinent family history Social History Social History (System 04/23/20 @ 12:23 by Aydee Ledesma) Smoking packs per day: 0.5 Smoking cigarettes per day: 10.0 Smoking status: Former smoker Tobacco type: cigarettes Second hand tobacco smoke exposure: Yes Substance use: never Spiritual care concerns: No Comments At the time of my signature, I reviewed and agree with the nursing past medical, surgical, social, and family history. There is no relevant family history pertinent to the patient complaint. Exam Narrative: GENERAL: This is a well-nourished, well-developed patient, in no apparent distress. HEAD: normocephalic, atraumatic. EYES: PERRL. Sclera clear/white. Vision is grossly intact. EARS: External ears normal, auditory canals clear and without drainage, TMs normal without perforation. Hearing grossly intact. NOSE: External nose normal with no obvious nasal discharge, nares without redness, no rhinorrhea. THROAT: Mucous membranes moist, posterior pharynx clear. NECK: Neck supple, non-tender without ly
== END 2023-01-16 08:37 | disposition home or self-care (01) ==
PROVIDERS: Emergency Provider Nurse Practitioner Family; PCP Internal Medicine
DX: B37.0 Candidal stomatitis (principal); R31.9 Hematuria, unspecified; Z87.891 Personal history of nicotine dependence
CPT/HCPCS: 81003; 87081; 87880; 99213; G0463